=== PATIENT | female | born 1990 | race Caucasian/White ===

== ENCOUNTER 2016-11-24 07:57 | Emergency (ER) | payer BC, OTHER ==
[~2016-11-24] VITALS: Ht 152.4 cm; Wt 83.8 kg
[2016-11-24 08:03] VITALS: BP 124/77; PULSE 85; RESP 16; TEMP 98.4; O2SAT 99
[2016-11-24] MEDS ORDERED: ONDANSETRON ODT 4 MG TAB PO ONE (08:15)
[2016-11-24] MEDS ORDERED: ACETAMINOPHEN 325 MG TAB PO ONE (08:15)
--- NOTE | 2016-11-24 08:20 | PD ---
HPI Chief Complaint: Head Injury Time Seen by Provider: 08:09 Travel History International Travel<30 days: No Contact w/Intl Traveler<30days: No Traveled to known affect area: No History of Present Illness HPI The patient is a 26-year-old female who presents emergency department after slip and fall. The patient states she was in the bathroom upstairs,, on the fourth floor, when she slipped and fell. The patient states she fell backwards on a tile floor striking her head. The patient thinks it was a loss of consciousness for several seconds. The patient complains of a posterior headache with mild nausea but denies any vomiting. She denies any visual acuity changes, neck pain, chest pain, shortness breath, or back pain. Symptoms are moderate, exacerbated after falling, and there are no current alleviating factors. The patient denies taking any anticoagulants. The patient 's last menstrual cycle was on October 19, she denies , states she has a history of irregular menstrual cycles. PFSH Past Medical History Asthma: Yes Autoimmune Disease: No Blood Disorders: No Anxiety: No Depression: No Cardiovascular Problems: No Diabetes: Yes Genitourinary: No Hypertension: Yes Musculoskeletal: No Neurologic: No Psychiatric: No Respiratory: Yes Seizures: Yes Sickle Cell Disease: No ?: Not LMP: 10/18/16 Social History Alcohol Use: No Tobacco Use: No Substance Use: No Allergies-Medications (Allergen,Severity, Reaction): Coded Allergies: No Known Allergies (Verified , 11/24/16) Reported Meds & Prescriptions Reported Meds & Active Scripts Active No Active Prescriptions or Reported Medications Review of Systems Except as stated in HPI: all other systems reviewed are Neg Eyes: No: Visual changes HENT: Positive: Headaches, No: Neck Pain Cardiovascular: No: Chest Pain or Discomfort Respiratory: No: Shortness of Breath Gastrointestinal: Positive: Nausea, No: Vomiting, Abdominal Pain Musculoskeletal: No: Limited ROM, Pain Neurologic: Positive: Other (possible LOC), No: Focal Abnormalities, Change in Mentation, Paresthesia, Sensory Disturbance Physical Exam Narrative GENERAL: Awake, alert, pleasant 26-year-old female who appears her stated age and is in no acute respiratory distress. SKIN: Focused skin assessment warm/dry. HEAD: Atraumatic. Normocephalic. No obvious hematoma or cephalic hematoma. EYES: Pupils equal and round. Pupils are 3 mm bilateral and reactive. EOMs are intact. Patient is able to see fingers at a distance of 2 feet without difficulty. ENT: No nasal bleeding or discharge. Mucous membranes pink and moist. NECK: Trachea midline. No JVD. No tenderness of the cervical vertebrae. MUSCULOSKELETAL: No obvious deformities. No clubbing. No cyanosis. No edema. Back: No tenderness over the thoracic or lumbar vertebrae. NEUROLOGICAL: Awake and alert. No obvious cranial nerve deficits. Motor grossly within normal limits. Normal speech. Nonfocal. Oriented 4. Follows commands without difficulty. PSYCHIATRIC: Appropriate mood and affect; insight and judgment normal. Data Data Last Documented VS Vital Signs Date Time Temp Pulse Resp B/P Pulse Ox O2 Delivery O2 Flow Rate FiO2 11/24/16 08:17 99 Room Air 11/24/16 08:03 98.4 85 16 124/[address] Brain W/O Iv Contrast(Rout) (11/24/16 ) Ed Urine Pregnancytest Poc (11/24/16 08:15) Acetaminophen (Tylenol) (11/24/16 08:15) Ondansetron Odt (Zofran Odt) (11/24/16 08:15) [facility] Medical Decision Making Medical Screen Exam Complete: Yes Emergency Medical Condition: Yes Medical Record Reviewed: Yes Interpretation(s) Last Impressions Head CT 11/24/16 0000 Signed Impressions: Service Date/Time: Tuesday, November 24, 2016 08:26 - CONCLUSION: Negative for acute process. Jonathan Garcia MD FACR Differential Diagnosis Differential diagnosis includes mechanical fall, closed head injury, concussion , intracranial hemorrhage, subarachnoid hemorrhage, subdural hemorrhage. Narrative Course Bedside UA test was obtained. CT of the brain was ordered. The patient was administered Tylenol and Zofran orally for pain and nausea. CT of the brain is negative. The patient is advised postconcussive precautions, no driving until symptoms have resolved, ibuprofen and/or Tylenol as needed for pain, follow-up with her primary physician. The patient will be provided a copy of her CT results at discharge. Diagnosis Primary Impression: Closed head injury Qualified Code: S09.90XA - Closed head injury, initial encounter Patient Instructions: General Instructions Additional Instructions: No driving while symptomatic. Ibuprofen and/or Tylenol as needed for pain. Follow-up with your primary physician. Please provide the patient a copy of her CT results at discharge. Med/Other Pt SpecificInfo: No Change to Meds Scripts No Active Prescriptions or Reported Meds Disposition: 01 DISCHARGE HOME Condition: Stable Alexei Harrington MD Nov 24, 2016 08:20
--- NOTE | 2016-11-24 08:52 | RADHPO ---
EXAM DATE/TIME: 11/24/2016 08:26 [facility] COMPARISON: No previous studies available for comparison. INDICATIONS : Trauma. Slip and fall with loss of consciousness. Cephalgia. Nausea. RADIATION DOSE: 67.53 CTDIvol (mGy) MEDICAL HISTORY : Seizures. Hypertension. SURGICAL HISTORY : None. ENCOUNTER: Initial ACUITY: 1 day PAIN SCALE: 8/10 LOCATION: cranial TECHNIQUE: Multiple contiguous axial images were obtained of the head. Using automated exposure control and adj ustment of the mA and/or kV according to patient size, radiation dose was kept as low as reasonably a chievable to obtain optimal diagnostic quality images. FINDINGS: CEREBRUM: The ventricles are normal for age. No evidence of midline shift, mass lesion, hemorrhage or acute in farction. No extra-axial fluid collections are seen. POSTERIOR FOSSA: The cerebellum and brainstem are intact. The 4th ventricle is midline. The cerebellopontine angle i s unremarkable. EXTRACRANIAL: The visualized portion of the orbits is intact. SKULL: The calvaria is intact. No evidence of skull fracture. CONCLUSION: Negative for acute process. Jonathan Garcia MD FACR on November 24, 2016 at 8:49 Board Certified Radiologist. This report was verified electronically.
[2016-11-24 09:33] VITALS: RESP 16
[2016-11-24 09:52] VITALS: BP 121/75
== END 2016-11-24 09:45 | disposition home or self-care (01) ==
LOC: PHED 07:57
DX: S09.90XA Unspecified injury of head, initial encounter (principal); J45.909 Unspecified asthma, uncomplicated; E11.9 Type 2 diabetes mellitus without complications; I10 Essential (primary) hypertension; R11.0 Nausea; W01.0XXA Fall on same level from slipping, tripping and stumbling without subsequent striking against object, initial encounter; Y93.E8 Activity, other personal hygiene; Y92.238 Other place in hospital as the place of occurrence of the external cause; Y99.8 Other external cause status
CPT/HCPCS: 70450; 84703; 99284

== ENCOUNTER → 2017-07-28 | Outpatient (CLI) | payer OTHER ==
[~2017-07-28] MED LIST: HYDR-3288 PO; HYDR-3583 PO; TIZA4CAP3 PO
[2017-07-28 12:48] LABS: AUTOMATED NEUTROPHIL # 5.7 TH/MM3 (1.8-7.7); BASOPHIL % 0.5 % (0.0-2.0); EOSINOPHIL # 0.1 TH/MM3 (0-0.4); EOSINOPHIL % 0.8 % (0.0-4.0); HEMATOCRIT 37.1 % (35.0-46.0); HEMOGLOBIN 12.7 GM/DL (11.6-15.3); LYMPHOCYTE # 2.3 TH/MM3 (1.0-4.8); MEAN CELL VOLUME 85.3 FL (80.0-100.0); MEAN CORPUSCULAR HEMOGLOBIN 29.2 PG (27.0-34.0); MEAN CORPUSCULAR HGB CONC 34.3 % (32.0-36.0); MEAN PLATELET VOLUME 8.4 FL (7.0-11.0); MONO % 8.8 % (0.0-8.0); MONOCYTE # 0.8 TH/MM3 (0-0.9); NEUT % 63.9 % (16.0-70.0); PLATELET COUNT 309 TH/MM3 (150-450); RED BLOOD COUNT 4.35 MIL/MM3 (4.00-5.30); RED CELL DISTRIBUTION WIDTH 14.8 % (11.6-17.2); WHITE BLOOD COUNT 8.9 TH/MM3 (4.0-11.0)
[2017-07-28 12:50] LABS: BACTERIA, URINE OCC /hpf; BILIRUBIN, URINE NEG (NEG); BLOOD, URINE SMALL (NEG); GLUCOSE,URINE NEG (NEG); KETONE, URINE NEG (NEG); MUCUS URINE FEW /lpf (OCC); NITRITE,URINE NEG (NEG); SQUAMOUS EPITHELIAL CELL URINE 3 /hpf (0-5); URINE COLOR YELLOW (YELLW/STRAW); URINE LEUKOCYTE ESTERASE TRACE (NEG)
[2017-07-28 13:01] LABS: PROTHROMBIN TIME - PATIENT 10.4 SEC (9.8-11.6)
[2017-07-28 13:08] LABS: BICARBONATE 28.2 MEQ/L (21.0-32.0); BLOOD UREA NITROGEN 8 MG/DL (7-18); CALCIUM 9.6 MG/DL (8.5-10.1); CHLORIDE 100 MEQ/L (98-107); CREATININE 0.61 MG/DL (0.50-1.00); GLOMERULAR FILTRATION RATE 117 ML/MIN (>89); GLUCOSE,FASTING 85 MG/DL (74-99); SODIUM (NA) 136 MEQ/L (136-145)
--- NOTE | 2017-07-29 13:59 | EKG ---
Date Performed: 07/28/2017 Time Performed: 12:08:39 PTAGE: 26 years EKG: Sinus rhythm NONSPECIFIC T-WAVE ABNORMALITY BORDERLINE ECG NO PREVIOUS TRACING 07/28/2017 1208 DOCTOR: Yumiko Downey Interpretating Date/Time 07/29/2017 13:58:12
== END ==
LOC: CPRE 11:14
PROVIDERS: ATTEND Neurological Surgery
DX: Z01.810 Encounter for preprocedural cardiovascular examination (principal); Z01.812 Encounter for preprocedural laboratory examination; M79.609 Pain in unspecified limb; R94.31 Abnormal electrocardiogram [ECG] [EKG]
CPT/HCPCS: 80048; 81001; 84703; 85025; 85610; 85730; 87640; 87641; 93005

== ENCOUNTER 2017-07-29 09:41 | Observation (INO) | payer OTHER ==
[~2017-07-29] VITALS: Ht 152.4 cm; Wt 88.2 kg
[~2017-07-29 09:41] MED LIST changes: +GELFOAM SIZE 100 ONE; +GENTAMICIN SULFATE 80 MG/2 ML VIAL ONE; -HYDR-3583 PO; +THROMBIN (TOPICAL) 5,000 UNIT VIAL ONE
[2017-07-29] MEDS ORDERED: SODIUM CHLORID 0.9% 500 ML IV PRN (10:15)
[2017-07-29] MEDS ORDERED: POVIDONE IODINE 5% (ANTISEPSIS KIT) 4 APPLICATIONS EACH NARE PRN (10:15)
[2017-07-29] MEDS ORDERED: LACTATED RINGER'S 1000 ML IV PRN (10:15)
[2017-07-29] MEDS ORDERED: CHLORHEXIDINE GLUCONATE 2 % 1 PACK (2 CLOTHS) TOPICAL PRN (10:15)
[2017-07-29] MEDS ORDERED: METOPROLOL TARTRATE 25 MG TAB PO PRN (10:15)
[2017-07-29] MEDS ORDERED: LACTATED RINGER'S 1000 ML INJ 1,000 ML IV SCH (10:15)
[2017-07-29] MEDS ORDERED: ceFAZolin 1,000 MG/NS 100 ML IV ONE ×2 (11:00)
[2017-07-29] MEDS ORDERED: ACETAMINOPHEN 1000 MG/100 ML 100 ML IV ONE (11:43)
[2017-07-29] MEDS ORDERED: ARTIFICIAL TEARS OPTH OINT 3.5 APPLIC/3.5 GM TUBO ONE (11:44)
[2017-07-29] MEDS ORDERED: diphenhydrAMINE HCL 50 MG/ML VIAL ONE ×2 (12:02→12:04)
--- NOTE | 2017-07-29 13:26 | HHI.DCPOC ---
Discharge Care Plan Diagnosis: (1) Status post cervical arthrodesis Goals to Promote Your Health * To prevent worsening of your condition and complications * To maintain your health at the optimal level Directions to Meet Your Goals Take your medications as prescribed Follow your dietary instruction Follow activity as directed Keep your appointments as scheduled Take your immunizations and boosters as scheduled If your symptoms worsen call your PCP, if no PCP go to Urgent Care Center or Emergency Room Smoking is Dangerous to Your Health. Avoid second hand smoke Call the 24-hour hour crisis hotline for domestic abuse at Alyssa Champion Jul 29, 2017 13:26
[2017-07-29] MEDS ORDERED: DEXMEDETOMIDINE HCL 200 MCG/2 ML VIAL ONE (13:28)
[2017-07-29] MEDS ORDERED: ACETAMINOPHEN 325 MG TAB PO PRN (13:30)
[2017-07-29] MEDS ORDERED: ONDANSETRON HCL 4 MG/2 ML VIAL IV PUSH PRN (13:30)
[2017-07-29] MEDS ORDERED: RESP: ALBUTEROL 2.5 MG/3 ML NEB (PRN) INH (13:30)
[2017-07-29] MEDS ORDERED: MORPHINE SULFATE 4 MG/ML INJ IV PUSH PRN (13:30)
[2017-07-29] MEDS ORDERED: MENTHOL LOZENGE BUCCAL PRN (13:30)
[2017-07-29] MEDS ORDERED: cloNIDine HCL 0.1 MG TAB PO/NG PRN (13:30)
[2017-07-29] MEDS ORDERED: MAGNESIUM HYDROXIDE SUSP 30 ML CUP PO PRN (13:30)
[2017-07-29] MEDS: SODIUM CHLOR 0.9% 1000 ML INJ 1,000 ML IV SCH (14:30)
--- NOTE | 2017-07-29 14:49 | PD.OP ---
Operative Report Date of Surgery: Jul 29, 2017 Preoperative Diagnosis: C6-7 disk herniation Postoperative Diagnosis: C6-7 disk herniation Procedure: C6-C7 anterior cervical discectomy and arthroplasty using Mobi C Anesthesia: general Surgeon: Lenin Bello [employer]ating [employer] Air Conditioning Mechanic(s): Fifi Morfin Operation and Findings: INDICATIONS FOR THE PROCEDURE Ms Modi is a 26 year-old female who presented with intractable neck pain and clinical evidence of C7 cervical radiculopathy. She was found to have focal stenosis with a C6-7 causing significant mass effect on the nerve roots. She failed multiple modalities of nonsurgical treatment including physical therapy, analgesics, antiinflammatories, and pain management with multiple epidural steroid injections. The severity of her pain and symptoms were affecting her quality of life. An anterior cervical discectomy and arthroplasty were indicated. The [id number] details of the surgical procedure, indications, alternatives, risks and potential complications were fully discussed with the patient. The patient fully understood. All her questions were answered. No guarantees were given. She voiced requesting the procedure and signed informed consents. She was offered the alternative of delaying the procedure and continuing with nonsurgical management. DETAILS OF THE SURGICAL PROCEDURE SURGICAL APPROACH A skin incision was made along the middle cervical crease on the left side with a #10 blade. The dissection was carried out through the platysma exposing the sternocleidomastoid muscle. The cervical spine was approached following the fascial layers of the neck, just medial to the anterior border of the sternocleidomastoid and carotid sheath by a combination of sharp and dull dissection. The omohyoid muscle was identified and carefully dissected laterally and the deep cervical fascia was carefully opened. The longus colli muscles were retracted to each side of the midline. A marker was placed at the c5-6 disc space and a cross-table lateral x-ray performed with a C-arm. An AP xray was then obtained as well, and the midline of the disk space was defined. SURGICAL DECOMPRESSION In order to decompress the anterior surface of the spinal cord it was necessary to perform a microsurgical resection of the disk. At this point in the procedure the operating microscope was draped in the usual sterile fashion and brought to the field. The rest of the surgical procedure was performed using microdissection technique with the exception of the closure. Under the operative microscopic a self-retaining retractor was placed underneath the longus colli muscle. The annulus was incised with a #15 blade and microdiscectomy was then carefully carried out using angled curets and pituitary forceps. The patient had a large right disk extrusion which was producing mass affect on the exiting nerve root. This was carefully dissected with a nerve hock and resected with a think foot plate 2 mm Kerrison under high magnification. The posterior longitudinal ligament was then elevated with an angled curet and incised with a 15 bladed knife. A careful resection of the posterior longitudinal ligament was carried out using a thin footplate 2 mm Kerrison. Extruded disk fragments were causing mechanical compression over the exiting left C7 nerve root were carefully dissected. The decompression was then carried out laterally, and a bilateral foraminotomy was performed with a 2 mm thin foot Kerrison. The epidural space was the systematically assessed with a nerve hook in search for disk fragments of scar tissue. An excellent decompression was achieved in both, the dural sac and bilateral exiting nerve roots. The incision was then irrigated with a large amount of antibiotic solution INTERBODY ARTHROPLASTY In order to avoid collapse of the disk space which would result in bilateral foraminal stenosis, and in order to maintain disk space height and function minimally development of adjacent level degeneration, it was necessary to place an interbody device. At this point of the procedure, gentle distraction was applied. The size of the interbody device was then assessed using a trial, and a cross table xray was done for confirmation of appropriate size and position of the device. Then the disk space was irrigated with antibiotic solution, and a 15mm by 6mm Mobi C artificial disk was carefully impacted into the disc space C6-C7. An excellent position of the device was achieved. This was confirmed anatomically by feeling the space posterior to the implant and distance to the anterior surface of the dural sac. Radiological confirmation of the position was performed with a cross table AP and lateral X-ray views, performed with the C-arm. COMPLETION OF THE SURGICAL PROCEDURE Once that each interbody device was in an appropriate position, the distraction was discontinued. The position of the device as well as alignment of the spine were assessed anatomically by direct visualization, and radiologically by performing an AP and lateral X-ray of the cervical spine with the C-arm. The position of the implant was excellent. The incision was irrigated with several liters of antibiotic solution. Hemostasis was achieved with a bipolar. A 7 mm Silviano-Hill drain was left in the prevertebral space and externalized through a separate stab incision. The incision was then closed in layers. 3-0 Vicryl with interrupted sutures was used to close the platysma and subcutaneous tissue. The skin was closed with 4- 0 running subcuticular Vicryl and Dermabond was applied to the skin. The drain was secured with a 3-0 nylon. At the end of the procedure the sponge, needle and instrument counts were all correct. The estimated blood loss was less than 70 cc. No blood transfusion was given. No intraoperative complications occurred. The patient received prophylactic antibiotics. The patient was then extubated and transferred to the recovery room in stable condition. Lenin Bello MD Jul 29, 2017 14:49
[2017-07-29] MEDS ORDERED: DEXAMETHASONE SOD PHOS 4 MG/ML VIAL IV ONE (14:57)
[2017-07-29] MEDS ORDERED: ONDANSETRON HCL 4 MG/2 ML VIAL IV PUSH ONE (14:57)
[2017-07-29] MEDS ORDERED: NEOSTIGMINE 5 MG/5 ML SYRINGE IV PUSH ONE (14:57)
[2017-07-29] MEDS ORDERED: LIDOCAINE HCL 1% PF 5 ML SYRINGE OTHER ONE (14:57)
[2017-07-29] MEDS ORDERED: ePHEDrine/NS 25 MG/5 ML SYRINGE IV ONE (14:57)
[2017-07-29] MEDS ORDERED: PHENYLEPH/NS 1000 MCG/10 ML SYR IV ONE (14:57)
[2017-07-29] MEDS ORDERED: GLYCOPYRROLATE 1 MG/5 ML SYRINGE IV PUSH ONE (14:57)
[2017-07-29] MEDS ORDERED: LACTATED RINGER'S 1000 ML INJ 2,000 ML IV ONE (14:57)
[2017-07-29] MEDS ORDERED: PROPOFOL 200 MG/20 ML AMP IV ONE (14:57)
[2017-07-29] MEDS ORDERED: DO NOT ADM ANY ANTICOAGULANT DRUGS PRN (14:59)
[2017-07-29] MEDS ORDERED: MIDAZOLAM HCL 2 MG/2 ML VIAL ONE (15:08)
--- NOTE | 2017-07-29 15:12 | RADRPT ---
EXAM DATE/TIME: 07/29/2017 12:59 [facility] COMPARISON: No previous studies available for comparison. INDICATIONS : C6-7 Anterior cervical disc fusion. MEDICAL HISTORY : Hypertension. Seizures. SURGICAL HISTORY : None. ENCOUNTER: Initial ACUITY: 1 day PAIN SCORE: Non-responsive. LOCATION: Cervical spine. FINDINGS: Artificial cervical disc is present at C6-7. The hardware appears well-positioned. Alignment is anato jada. Other disc spaces are unremarkable. There is a surgical drain present. CONCLUSION: Satisfactory operative appearance. Domenico Quijano MD on July 29, 2017 at 15:09 Board Certified Radiologist. This report was verified electronically.
[2017-07-29] MEDS ORDERED: HYDR-3583 PO (15:21)
[2017-07-29] MEDS ORDERED: *morphine SULFATE 4 MG/ML PERIprocedure ONLY ONE (15:49)
[2017-07-29 16:00] VITALS: BP 136/74; PULSE 70; RESP 16; TEMP 98.3; O2SAT 96
[2017-07-29] MEDS: ACETAMINOPHEN/HYDROcodone 325 MG/10 MG TAB PO PRN ×2 (17:02→20:50)
[2017-07-29] MEDS: DEXAMETHASONE SOD PHOS 4 MG/ML VIAL IV PUSH SCH (18:07)
[2017-07-29] MEDS: MORPHINE SULFATE 4 MG/ML INJ IV PUSH PRN ×2 (19:50→23:03)
[2017-07-29 20:00] VITALS: BP 100/64; PULSE 78; RESP 15; TEMP 95.6; O2SAT 95
[2017-07-29] MEDS: ceFAZolin 2 GM PREMIX 50 ML IV SCH (20:46)
[2017-07-29] MEDS: DOCUSATE SODIUM 100 MG CAP PO SCH (20:46)
[2017-07-30] VITALS: BP 104/53; PULSE 76; RESP 17; TEMP 96; O2SAT 91
[2017-07-30] MEDS: DEXAMETHASONE SOD PHOS 4 MG/ML VIAL IV PUSH SCH ×3 (00:15→12:18)
[2017-07-30] MEDS: ACETAMINOPHEN/HYDROcodone 325 MG/10 MG TAB PO PRN ×3 (01:00→12:18)
[2017-07-30] MEDS: MORPHINE SULFATE 4 MG/ML INJ IV PUSH PRN ×4 (01:02→13:22)
[2017-07-30 04:00] VITALS: BP 114/66; PULSE 69; RESP 16; TEMP 97.4; O2SAT 92
[2017-07-30] MEDS: ceFAZolin 2 GM PREMIX 50 ML IV SCH ×2 (04:33→12:17)
[2017-07-30] MEDS: SODIUM CHLOR 0.9% 1000 ML INJ 1,000 ML IV SCH (07:54)
[2017-07-30 08:00] VITALS: BP 137/88; PULSE 80; RESP 18; TEMP 96.8; O2SAT 96
[2017-07-30] MEDS ORDERED: PANTOPRAZOLE SOD 40 MG DELAYED RELEASE TAB PO SCH (09:00)
[2017-07-30] MEDS: DOCUSATE SODIUM 100 MG CAP PO SCH (09:24)
[2017-07-30 11:45] VITALS: BP 105/44; PULSE 63; RESP 17; TEMP 96.4; O2SAT 93
--- NOTE | 2017-07-30 11:45 | HHI.NSPN ---
History Chief Complaint: Incisional pain. Interval History 07/30/17: Pt awake and alert. Complains of neck pain but improving. She states the LUE radicular pain is improved. She is ambulating around room. Voiding well. Ready to go home. Review of Systems General: Negative for: fever, chills, insomnia Respiratory: Negative for: shortness of breath, cough, sputum Cardiovascular: Negative for: chest pain Gastrointestinal: Negative for: nausea, vomitting, diarrhea, constipation Exam Results Vital Signs Date Time Temp Pulse Resp B/P (MAP) Pulse Ox O2 Delivery O2 Flow Rate FiO2 07/30/17 08:00 96.8 80 18 137/88 (104) 96 07/29/17 16:00 Nasal Cannula 3 Intake and Output 07/30/17 07/30/17 07/31/17 08:00 16:00 00:00 Output Total 5 ml Balance -5 ml Physical Examination General: Pt awake and alert, resting in bed in NAD. Resp: CTA bilaterally Heart: NSR no murmurs Abd: Soft positive bs Skin: Incision clean and dry. No signs of infection. Muscle: Moves all 4 extremities well. Neuro: Pt awake and alert. Follows commands well. Speech clear and appropriate. Some paresthesias in LUE but improving. Lab, Micro, Other Results Last Impressions Cervical Spine X-Ray 07/29/17 0000 Signed Impressions: Service Date/Time: Saturday, July 29, 2017 12:59 - CONCLUSION: Satisfactory operative appearance. Domenico Quijano MD Medical Decision Making Impression and Plan A: 26 y/o FM s/p C6-C7 anterior cervical discectomy and arthroplasty using Mobi C P: KATHLEEN drain was removed and steri strip placed. D/C home. Pietro Beckman Jul 30, 2017 11:45 am
--- NOTE | 2017-08-01 13:38 | HHI.DS ---
Discharge Summary Admission Date Jul 29, 2017 at 13:24 Discharge Date: Jul 30, 2017 Admitting Diagnosis s/p ACD with mobi c (1) Status post cervical arthrodesis ICD Code: Z98.1 - Arthrodesis status Brief History Ms Modi is a 26 year-old female who presented with intractable neck pain and clinical evidence of C7 cervical radiculopathy. She was found to have focal stenosis with a C6-7 causing significant mass effect on the nerve roots. She failed multiple modalities of nonsurgical treatment including physical therapy, analgesics, antiinflammatories, and pain management with multiple epidural steroid injections. The severity of her pain and symptoms were affecting her quality of life. An anterior cervical discectomy and arthroplasty were indicated. Imaging Last Impressions Cervical Spine X-Ray 07/29/17 0000 Signed Impressions: Service Date/Time: Saturday, July 29, 2017 12:59 - CONCLUSION: Satisfactory operative appearance. Domenico Quijano MD Hospital Course Ms. Modi underwent a C6-C7 anterior cervical discectomy and arthroplasty using Mobi on Jul 29, 2017 for C6-7 disk herniation. She was discharged home in stable conditions. Pt Condition on Discharge: Stable Discharge Disposition: Discharge Home Discharge Instructions DIET: Follow Instructions for: Heart Healthy Diet, Soft Diet ADDITIONAL Diet Instructions: advance as tolerated ACTIVITIES You can perform: Weight Bearing As Sukhwinder ADDITIONAL Activity Instructio: Avoid strenuous activities, heavy lifting over 5 lbs, overhead activities, repetitive bending, twisting, pushing, pulling or any activities which might result in stress over the spine. Avoid situation that will put at risk for falls. Use assistive device as needed for walking. Wear cervical collar at all times, may remove only with meals. New Medications: Hydrocodone/Acetaminophen (Hydrocodone-Acetamin 10-325 mg) 10 Mg-325 Mg Tablet 1 TAB PO Q8HR PRN for PAIN SCALE 1 TO 10, #60 TAB-CAP Continued Medications: Hydrocodone-Acetaminophen ([place]) 7.5-325 mg Tab 1 TAB PO Q6H PRN for PAIN, TAB 0 Refills Tizanidine (Tizanidine) 4 Mg Cap 4 MG PO TID for Muscle Spasm, CAP 0 Refills Alyssa Champion Aug 01, 2017 13:38
== END 2017-07-30 14:58 | disposition home or self-care (01) ==
LOC: HSDC 09:41 → HSDI 13:24 → N06B 16:16
PROVIDERS: ADMIT Neurological Surgery; ATTEND Neurological Surgery
DX: M50.123 Cervical disc disorder at C6-C7 level with radiculopathy (principal); J45.909 Unspecified asthma, uncomplicated; Z72.0 Tobacco use
CPT/HCPCS: 00600; 22856; 72040; 76000; 97161; C1889; G0378; G8987; G8988; G8989; J0131; J0690; J1100; J1200; J1580; J2250; J2270; J2370; J2405; J2710; J3010; J7030; J7120; L0150; L0172

== ENCOUNTER 2017-08-25 10:38 | Emergency (ER) | payer OTHER ==
[~2017-08-25] VITALS: Ht 152.4 cm; Wt 90.0 kg
[~2017-08-25 10:38] MED LIST changes: -GELFOAM SIZE 100 ONE; -GENTAMICIN SULFATE 80 MG/2 ML VIAL ONE; +HYDR-3583 PO; -THROMBIN (TOPICAL) 5,000 UNIT VIAL ONE
[2017-08-25 10:40] VITALS: BP 130/80; PULSE 73; RESP 17; TEMP 97.7; O2SAT 100
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
[2017-08-25] MEDS ORDERED: KETOROLAC TROMETHAMINE 60 MG/2 ML (IM) VIAL IM ONE (11:15)
[2017-08-25] MEDS ORDERED: CYCLOBENZAPRINE HCL 10 MG TAB PO ONE (11:15)
[2017-08-25] MEDS ORDERED: KETOROLAC TROMETHAMINE 10 MG TAB PO ONE (11:15)
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
[2017-08-25] MEDS ORDERED: IBUP1TAB7 PO (12:02)
[2017-08-25] MEDS ORDERED: ROBA500T PO (12:02)
== END 2017-08-25 12:12 | disposition home or self-care (01) ==
LOC: NEPK 10:38
DX: S16.1XXA Strain of muscle, fascia and tendon at neck level, initial encounter (principal); V43.52XA Car driver injured in collision with other type car in traffic accident, initial encounter; Y92.410 Unspecified street and highway as the place of occurrence of the external cause
CPT/HCPCS: 72125; 96372; 99283; J1885